=== PATIENT | male | born 2000 | race Caucasian/White ===

== ENCOUNTER 2023-07-09 07:51 | Emergency (ER) | payer SELFPAY ==
[2023-07-09 08:00] VITALS: BP 123/94; PULSE 121; RESP 18; TEMP 38.3; O2SAT 97; BMI 33.0
--- NOTE | 2023-07-09 08:09 | XRR_ITS ---
PROCEDURE INFORMATION: Exam: XR Chest Exam date and time: 07/09/2023 8:15 AM Age: 22 years old Clinical indication: Cough and dyspnea and fever; Additional info: Dyspnea/cough TECHNIQUE: Imaging protocol: Radiologic exam of the chest. Views: 1 view. COMPARISON: No relevant prior studies available. FINDINGS: Lungs: Unremarkable. No consolidation. Pleural spaces: Unremarkable. No pleural effusion. No pneumothorax. Heart/Mediastinum: Unremarkable. No cardiomegaly. Bones/joints: Unremarkable. XR/XR chest 1V portable [id number] IMPRESSION: No acute findings.
--- NOTE | 2023-07-09 08:15 | ED_ITS ---
HPI - Fever 2 General: Chief Complaint: Fever Stated Complaint: cough, n/v, fever Time Seen by Provider: 07/09/23 08:07 Source: patient Mode of arrival: ambulatory History of Present Illness: 22 yo male who present to [facility] ER with g eneralized weakness and myalgias, sore throat and non-productive cough no vomiting no diarrhea. He took some home flu medications with minimal relief. No active cough at this time. Patient denies abdominal pain or chest pain no dysuria urgency or frequency MD elicited complaint: fever Exacerbating factors: nothing Relieving factors: nothing Associated symptoms: Reports chills, cough, headache(s), nasal congestion and nausea; Deny abdominal pain, flank pain, chest pain, confusion, diarrhea, dysuria, extremity pain, myalgias, night sweats, rash, rhinorrhea, short of breath, sinus pain, stiffness, sore throat, vaginal discharge, vomiting or weight loss Treatments prior to arrival fever: none Review of Systems 2 Const: Reports: fever(s), chills, body aches, fatigue and malaise; Denies: night sweats ENMT: Reports: nasal congestion; Denies: sinus pain Card: Denies: chest pain Resp: Denies: dyspnea GI: Reports: nausea; Denies: abdominal pain, vomiting or diarrhea : Denies: flank pain, dysuria, urinary frequency or urinary urgency Musc: Denies: neck pain, back pain or extremity pain Skin/Breast: Denies: rash Neuro: Reports: headache(s); Denies: confusion Physical Exam 2 Const: COMMON NORMALS: no acute distress GENERAL APPEARANCE: cooperative ORIENTATION/CONSCIOUSNESS: Yes awake, Yes oriented to person, Yes oriented to place and Yes oriented to time HENMT: COMMON NORMALS: normocephalic, atraumatic and hearing grossly normal bilaterally HEAD & SCALP: normocephalic and atraumatic Resp: COMMON NORMALS: normal respiratory effort, No retractions, No use of accessory muscles and clear to auscultation bilaterally AUSCULTATION: clear to auscultation bilaterally Cardio: COMMON NORMALS: regular rate, regular rhythm and No murmurs present (Cardio) RATE: regular rate RHYTHM: regular rhythm GI: COMMON NORMALS: Soft to palpation and No hepatosplenomegaly present A USCULTATION: Yes normoactive bowel sounds PALPATION: Yes Soft to palpation, No Tenderness to palpation present (GI), No Guarding due to palpation present (GI) and Yes No hepatosplenomegaly present Extremity: COMMON NORMALS: normal to inspection, capillary refill normal, no clubbing, cyanosis or edema, no calf tenderness and no pedal edema Neuro: SENSORIUM/ORIENTATION: Yes oriented to person, Yes oriented to place and Yes oriented to time Skin: COMMON NORMALS: no rashes or lesions noted GENERAL SKIN EXAM: no rashes or lesions noted Course 2 Vital Signs: Vital signs: Vital Signs Temperature 101.0 F H 07/09/23 08:00 Pulse Rate 104 H 07/09/23 09:41 Respiratory Rate 18 07/09/23 08:00 Blood Pressure 120/80 07/09/23 09:41 Pulse Oximetry 98 07/09/23 09:41 Oxygen Delivery Me thod Room Air 07/09/23 08:17 MDM - Fever Medical Decision Making Influenza B is beyond 48 hours since onset of symptoms outside the window of treatment. Supportive cares follow-up as needed Medical Records I reviewed the patient's medical records. Lab Data I reviewed the patient's lab results. 07/09/23 08:35 07/09/23 08:35 Radiology Impressions Chest X-Ray 07/09/23 08:09 IMPRESSION: No acute findings. Laboratory Results WBC 4.70 10^3/uL (3.29-11.43) 07/09/23 08:35 RBC 4.94 10^6/uL (3.85-5.65) 07/09/23 08:35 Hgb 14.50 g/dL (11.27-16.99) 07/09/23 08:35 Hct 42.5 % (37-53) 07/09/23 08:35 MCV 86.0 fl (82-101) 07/09/23 08:35 MCH 29.4 pg (27-33) 07/09/23 08:35 MCHC 34.1 g/dL (30-55) 07/09/23 08:35 RDW 11.9 % (12.1-15.1) L 07/09/23 08:35 Plt Count 259 10^3/cmm (157-399) 07/09/23 08:35 MPV 9.5 fL (7.4-10.4) 07/09/23 08:35 Neut % (Auto) 65.7 % 07/09/23 08:35 Lymph % (Auto) 15.3 % 07/09/23 08:35 [place] % (Auto) 17.4 % 07/09/23 08:35 Eos % (Auto) 0.4 % 07/09/23 08:35 Baso % (Auto) 0.6 % 07/09/23 08:35 Neut # (Auto) 3.08 10^3/uL (1.8-7.7) 07/09/23 08:35 Lymph # (Auto) 0.7 10^3/uL (0.8-4.8) L 07/09/23 08:35 [place] # (Auto) 0.8 10^3/uL (0.2-0.9) 07/09/23 08:35 Eos # (Auto) 0.0 10^3/uL (0.0-0.8) 07/09/23 08:35 Baso # (Auto) 0.0 10^3/uL (0.0-0.1) 07/09/23 08:35 Nucleated RBC % (auto) 0 % 07/09/23 08:35 Nucleated RBCs # 0.0 /100WBC 07/09/23 08:35 Sodium 138 mmol/L (136-145) 07/09/23 08:35 Potassium 4.2 mmol/L (3.5-5.1) 07/09/23 08:35 Chloride 103 mmol/L (98-107) 07/09/23 08:35 Carbon Dioxide 23 mmol/L (22-29) 07/09/23 08:35 Anion Gap 16.2 (5-19) 07/09/23 08:35 BUN 8 mg/dL (6-20) 07/09/23 08:35 Creatinine 0.8 mg/dL (0.7-1.2) 07/09/23 08:35 GFR Calculation 120.9 mL/min (90-130) 07/09/23 08:35 Glucose 98 mg/dL (65-115) 07/09/23 08:35 Calculated Osmolality 286 mOsm/kg (285-295) 07/09/23 08:35 Calcium 8.8 mg/dL (8.5-10.5) 07/09/23 08:35 Total Bilirubin 0.4 mg/dL (0.15-1.2) 07/09/23 08:35 AST 20 U/L (0-40) 07/09/23 08:35 ALT 36 U/L (0-41) 07/09/23 08:35 Alkaline Phosphatase 95 U/L (40-130) 07/09/23 08:35 Total Protein 7.5 g/dL (6.6-8.7) 07/09/23 08:35 Albumin 4.5 g/dL (3.5-5.2) 07/09/23 08:35 Globulin 3.2 g/dL (1.3-4.6) 07/09/23 08:35 Coronavirus 229E (PCR) Not detected (NOT DETECT) 07/09/23 08:43 Monoscreen Negative (Negative) 07/09/23 08:35 Influenza A (H1) PCR Not detected (NOT DETECT) 07/09/23 10:59 Influ A (H1/09) PCR Not detected (NOT DETECT) 07/09/23 10:59 Influenza A (H3) PCR Not detected (NOT DETECT) 07/09/23 10:59 Influenza Type A Ag negative (Negative) 07/09/23 08:43 Influenza Type A (PCR) Not detected (NOT DETECT) 07/09/23 10:59 Influenza Type B Ag positive (Negative) H 07/09/23 08:43 Influenza Type B (PCR) Detected (NOT DETECT) A 07/09/23 10:59 SARS-CoV-2 (PCR) Not detected (NOT DETECT) 07/09/23 08:43 Group A Strep Rapid Negative (Negative) 07/09/23 08:43 All radiology interpretation(s) finalized by discharge Discharge Plan Discharge Patient Disposition: Home Clinical Impression: Influenza Condition: Stable Prescriptions: No Action Hair, Skin and Nails (biotin) 10,000 mcg Tablet,Chewable 10,000 mcg PO DAILY Discharge Orders: Discharge ED (Routine); Ordered 07/09/23 Ordered By: Idris Zee Discharge Diet: Usual diet Discharge Activity: Increase activity as tolerated Patient Instructions: Influenza (ED), Opioid Safety, Pain Management Activity Restrictions/Additional Instructions: Thank you for choosing [facility] for your healthcare needs today. Please realize this is an emergency room and that we are providing you with a medical screening exam and this may not be complete and all inclusive of all the testing and or work up that you may need to determine your ailment or severity of your illness. It is very important that you follow up as instructed or that you return to the Emergency Department should you have concerns or if your condition changes or worsens in any way. 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
[2023-07-09 08:17] VITALS: BP 123/94; PULSE 115; O2SAT 97
[2023-07-09] MEDS: acetaminophen 325 mg Tablet 650 MG PO (08:21)
[2023-07-09] MEDS: sodium chloride 0.9% 1,000 ML 999 ML IV ×2 (08:37→08:52)
[2023-07-09 08:45] LABS: Basophils % 0.6 %; Eosinophils % 0.4 %; Hematocrit 42.5 % (37-53); Lymphocytes # 0.7 10^3/uL (0.8-4.8); Lymphocytes % 15.3 %; Mean Corpuscular HGB Conc 34.1 g/dL (30-55); Mean Corpuscular Hemoglobin 29.4 pg (27-33); Mean Platelet Volume 9.5 fL (7.4-10.4); Monocytes # 0.8 10^3/uL (0.2-0.9); Monocytes % 17.4 %; Neutrophils # 3.08 10^3/uL (1.8-7.7); Neutrophils % 65.7 %; Nucleated Red Blood Cells % 0 %; Platelet Count 259 10^3/cmm (157-399); Red Blood Count 4.94 10^6/uL (3.85-5.65); Red Cell Distribution Width 11.9 % (12.1-15.1)
[2023-07-09 09:01] LABS: Influenza A by IFA negative (Negative); Influenza B by IFA positive (Negative)
[2023-07-09 09:06] LABS: Rapid Strep A Test Negative (Negative)
[2023-07-09 09:08] LABS: Monoscreen Negative (Negative)
[2023-07-09 09:13] LABS: Alanine Aminotransferase 36 U/L (0-41); Albumin Level 4.5 g/dL (3.5-5.2); Alkaline Phosphatase 95 U/L (40-130); Chloride 103 mmol/L (98-107); Potassium 4.2 mmol/L (3.5-5.1); Sodium 138 mmol/L (136-145)
[2023-07-09 09:19] LABS: Anion Gap 16.2 (5-19); Aspartate Amino Transferase 20 U/L (0-40); Blood Urea Nitrogen 8 mg/dL (6-20); Calcium 8.8 mg/dL (8.5-10.5); Carbon Dioxide 23 mmol/L (22-29); Creatinine Clr Calc Pharmacy 191.1338; Globulin 3.2 g/dL (1.3-4.6); Glomerular Filtration Rate 120.9 mL/min (90-130); Glucose 98 mg/dL (65-115); Osmolality Calculated 286 mOsm/kg (285-295); Total Bilirubin 0.4 mg/dL (0.15-1.2); Total Protein 7.5 g/dL (6.6-8.7)
[2023-07-09 09:41] VITALS: BP 120/80; PULSE 104; O2SAT 98
[2023-07-09 10:55] LABS: Adenovirus Not Detected (NOT DETECT); Chlamydia Pneumoniae Not Detected (NOT DETECT); Coronavirus 229E,HKU1,NL63,OC4 Not Detected (NOT DETECT); Human Metapneumovirus Not Detected (NOT DETECT); Human Rhinovirus/Enterovirus Not Detected (NOT DETECT); Influenza A Not Detected (NOT DETECT); Influenza A H1 Not Detected (NOT DETECT); Influenza A H1-2009 Not Detected (NOT DETECT); Influenza A H3 Not Detected (NOT DETECT); Influenza B Detected (NOT DETECT); Mycoplasma Pneumoniae Not Detected (NOT DETECT); Parainfluenza Virus Type 1 Not Detected (NOT DETECT); Parainfluenza Virus Type 2 Not Detected (NOT DETECT); Parainfluenza Virus Type 3 Not Detected (NOT DETECT); Parainfluenza Virus Type 4 Not Detected (NOT DETECT); Respiratory Syncytial Virus A Not Detected (NOT DETECT); Respiratory Syncytial Virus B Not Detected (NOT DETECT); SARS-COV-2 Not Detected (NOT DETECT)
[2023-07-09 11:00] LABS: Influenza A Not Detected (NOT DETECT); Influenza A H1 Not Detected (NOT DETECT); Influenza A H1-2009 Not Detected (NOT DETECT); Influenza A H3 Not Detected (NOT DETECT); Influenza B Detected (NOT DETECT); Results from Genmark
== END 2023-07-09 09:43 | disposition home or self-care (01) ==
PROVIDERS: Emergency Provider Family Medicine
DX: J10.1 Influenza due to other identified influenza virus with other respiratory manifestations (principal); Z11.52 Encounter for screening for COVID-19
CPT/HCPCS: 71045; 80053; 85025; 86308; 87081; 87631; 87635; 87804; 87880; 96360; 96361; 99284; J7030